=== PATIENT | male | born 1960 | race Hispanic/Latino ===

== ENCOUNTER 2019-07-03 06:48 | Day surgery (SDC) | payer BC ==
[2019-07-03] MEDS ORDERED: NACL 0.9% 500 ML 500 ML ONE (07:46)
[2019-07-03] MEDS ORDERED: NACL 0.9% 500 ML 500 ML IV SCH (08:00)
[2019-07-03 08:12] LABS: Basophils # (Auto) 0.1 K/mm3 (0.0-0.1); Basophils % (Auto) 0.8 % (0.0-1.8); Eosinophils # (Auto) 0.3 K/mm3 (0.0-0.4); Eosinophils % (Auto) 3.5 % (0.0-4.3); Hematocrit 35.3 % (35.5-45.6); Hemoglobin 12.5 gm/dl (11.8-15.2); Lymphocytes # (Auto) 2.4 K/mm3 (1.2-5.4); Lymphocytes % (Auto) 28.2 % (13.4-35.0); Mean Corpuscular HGB Conc 35 % (32-34); Mean Corpuscular Volume 86 fl (84-94); Monocytes # (Auto) 0.6 K/mm3 (0.0-0.8); Monocytes % (Auto) 6.7 % (0.0-7.3); Platelet Count 173 K/mm3 (140-440); Red Cell Distribution Width 14.3 % (13.2-15.2)
[2019-07-03 08:22] LABS: INR 0.98 (0.87-1.13)
[2019-07-03 08:25] LABS: BUN/Creatinine Ratio 27; Blood Urea Nitrogen 24 mg/dL (9-20); Hemolysis Index 27
[2019-07-03] MEDS ORDERED: HEPARIN/NS 5000 UNIT/500ML(CATH LAB) 1,000 ML IR ONE (10:00)
[2019-07-03] MEDS ORDERED: HEPARIN 10,000 UNITS/10 ML ONE (10:00)
[2019-07-03] MEDS ORDERED: XYLOCAINE 2% INFILTRATI ONE (10:01)
[2019-07-03] MEDS ORDERED: NITROGLYCERIN SYRINGE 3 ML ONE (10:01)
[2019-07-03] MEDS ORDERED: CALAN ONE (10:01)
[2019-07-03] MEDS ORDERED: SUBLIMAZE ONE (10:02)
[2019-07-03] MEDS ORDERED: VERSED ONE (10:02)
--- NOTE | 2019-07-03 11:53 | Cardiac Catherization Report ---
CARDIAC CATHETERIZATION REPORT REASON FOR PROCEDURE: The patient is a 58-year-old man who presented for cardiac preoperative assessment for prostate seed implant. A preoperative thallium stress test was markedly abnormal, with high risk features of a dilated left ventricle and multiple large defects consistent with multivessel coronary artery disease. He was recommended for cardiac catheterization. PROCEDURES: 1. Left heart catheterization. 2. Selective left and right coronary angiography. 3. Left ventricular angiography. 4. Sedation time, start 10:51, end 11:11. The patient was prepped and draped in a sterile fashion after informed consent. The right radial cath site was prepped and draped after a negative Mk's test. The right radial artery was entered using the Seldinger technique followed by placement of a 6-Urdu hydrophilic sheath. Routine radial cocktail was administered via the sheath. Selective left and right coronary angiography was performed using a #3.5 left Jose Angel, and #4 right Jose Angel. A pigtail catheter was used for left ventricular angiography. The catheters were then removed, sheath removed, and hemostasis achieved using manual compression. The patient was returned to the postprocedure unit in stable condition. There were no complications. FINDINGS: HEMODYNAMICS: Left ventricular end-diastolic pressure was 24, following coronary angiography. Ascending aortic pressure was 128/63. There was no significant pressure gradient on pullback across the aortic valve. CORONARY ANGIOGRAPHY: The left main coronary artery contained diffuse mild atherosclerosis. The left anterior descending artery was completely occluded at its ostium. There was collateralization of the mid and distal segments of the LAD from the right coronary system. There was also faint collateralization of the mid segments of the LAD by left to left collaterals. The circumflex artery was a large dominant system. There were mild irregularities of the proximal AV groove circumflex. Following this, a medium to large mid obtuse marginal was noted to contain a 90% stenosis of its proximal segment. The AV groove circumflex then continued, terminating in one large posterolateral branch and also a medium to large left posterior descending artery. There was a 75% stenosis of the mid AV groove circumflex, leading to the large posterolateral branch. Following that, there was another 100% occlusive stenosis of the distal vessel after the posterolateral branch. The medium-sized left posterior descending was reconstituted by left to left collaterals. The right coronary artery was a small caliber nondominant vessel. There was diffuse atherosclerosis of this nondominant vessel including a 70-80% stenosis of the proximal segment of the large right ventricular branch. As reported previously, the right coronary artery fed collaterals to the distal segments of the occluded LAD. The left ventricle was moderately dilated. There was at least moderate left ventricular systolic dysfunction, diffuse hypokinesis. Left ventricular ejection fraction 35-40%. CONCLUSION: 1. Severe 3-vessel coronary artery disease. 2. Moderate left ventricular systolic dysfunction, ejection fraction 35-40%. RECOMMENDATIONS: The patient will be referred for coronary artery bypass surgery. JOB# [id number] PRIYANKA/NTS
[2019-07-03] MEDS ORDERED: NACL 0.9% 1000 ML 1,000 ML IV SCH (12:00)
--- NOTE | 2019-07-03 12:00 | Discharge Summary ---
Short Stay Discharge Plan Activity: advance as tolerated Weight Bearing Status: Partial Weight Bearing Diet: low fat, low cholesterol, low salt Wound: keep clean and dry Special Instructions: no heavy lifting (3 days) Follow up with: KAT FRENCH MD [Primary Care Provider] - 7 Days LULU THAKUR MD [Staff Physician] - 7 Days
[2019-07-03 14:02] VITALS: BP 109/59
== END 2019-07-03 14:35 | disposition other institution (70) ==
LOC: CATHLABREC 06:48
PROVIDERS: ATTEND Internal Medicine Cardiovascular Disease
DX: I25.10 Atherosclerotic heart disease of native coronary artery without angina pectoris (principal); E78.00 Pure hypercholesterolemia, unspecified; I25.5 Ischemic cardiomyopathy; E11.9 Type 2 diabetes mellitus without complications; I11.0 Hypertensive heart disease with heart failure; I50.9 Heart failure, unspecified; F32.9 Major depressive disorder, single episode, unspecified; Z85.89 Personal history of malignant neoplasm of other organs and systems; Z79.4 Long term (current) use of insulin; Z79.899 Other long term (current) drug therapy; Z79.82 Long term (current) use of aspirin; Z98.890 Other specified postprocedural states; Z90.49 Acquired absence of other specified parts of digestive tract; Z85.46 Personal history of malignant neoplasm of prostate; Z90.5 Acquired absence of kidney; Z79.84 Long term (current) use of oral hypoglycemic drugs
CPT/HCPCS: 36415; 80048; 85025; 85610; 85730; 93005; 93010; 93458; 99156; C1894; J1644; J2250; J3010; J7030; J7040; Q9967

== ENCOUNTER 2020-12-09 08:22 | Outpatient (CLI) | payer BC ==
--- NOTE | 2020-12-09 11:51 | Vascular Lab Report ---
Left lower leg Doppler venous ultrasound INDICATION: Edema FINDINGS: The left common femoral vein, superficial femoral vein and popliteal vein have normal compr essibility and phasic flow. IMPRESSION: No evidence for DVT in the left lower extremity. Signer Name: Nate Gaston MD Signed: 12/09/2020 11:46 AM Workstation Name: [id number]
== END 2020-12-09 08:23 | disposition home or self-care (01) ==
LOC: VAS 08:22
PROVIDERS: ATTEND Internal Medicine Cardiovascular Disease
DX: I70.212 Atherosclerosis of native arteries of extremities with intermittent claudication, left leg (principal)